=== PATIENT | female | born 1960 ===

== ENCOUNTER 2025-08-19 10:14 | Outpatient (CLI) | payer BC, SELFPAY ==
--- NOTE | 2025-08-19 08:43 | DI.RAD_ITS ---
Exam(s) XR HIP LT COMPLETE AP PELVIS EXAM: XR HIP LT COMPLETE AP PELVIS CLINICAL HISTORY: LEFT KNEE PAIN. TECHNIQUE: 2D digital imaging was performed of the left hip. Two views were obtained. AP pelvis and lateral left hip views were obtained. COMPARISON: CR LEFT HIP COMPLETE from 11/19/2010 CR LEFT HIP COMPLETE from 11/10/2012 FINDINGS: BONES: No acute fracture is present. No bony destructive lesion is seen. JOINTS: No dislocation present. Osteophytes are seen at the left femoral head. The joint spaces otherwise well maintained. There is also small osteophyte at the right femoral head. Mild degenerative changes are seen in the sacroiliac joints. The symphysis pubis is unremarkable. SOFT TISSUE: Normal. IMPRESSION: Mild degenerative changes seen in the left hip. DATA REPOSITORY: RADIATION DOSE DELIVERED:
--- NOTE | 2025-08-19 08:44 | DI.RAD_ITS ---
Exam(s) XR KNEE LT 4V AP,LAT,ANNABEL,PAT EXAM: XR KNEE LT 4V AP,LAT,ANNABEL,PAT CLINICAL HISTORY: LEFT KNEE PAIN. TECHNIQUE: 2D digital imaging was performed of the left knee. Four images were obtained. Merchant,AP, lateral and PA tunnel views were obtained. COMPARISON: No exams were available for comparison FINDINGS: BONES: No acute fracture is present. No bony destructive lesion is seen. JOINTS: There is marked narrowing of the medial femoral tibial joint. Osteophytes are seen involving all 3 joint compartments. There is moderate narrowing of the patellofemoral joint. There is a tiny joint effusion. No loose body. SOFT TISSUE: Normal. IMPRESSION: Moderately severe osteoarthritis of the left knee. DATA REPOSITORY: RADIATION DOSE DELIVERED:
== END 2025-08-19 10:15 | disposition home or self-care (01) ==
LOC: DIORS 10:15
PROVIDERS: Visit Provider Physician Assistant
DX: M25.562 Pain in left knee (principal); M16.12 Unilateral primary osteoarthritis, left hip; M17.12 Unilateral primary osteoarthritis, left knee
CPT/HCPCS: 73502; 73564